=== PATIENT | male | born 1950 | race Caucasian/White ===

== ENCOUNTER 2017-03-05 11:14 | Observation (INO) | payer BC ==
[2017-03-05] MEDS ORDERED: NS 0.9% 1000 ML* 1,000 ML IV ONE (11:43)
--- NOTE | 2017-03-05 12:34 | RAD ---
Indication: Dizziness, syncope. CT of the brain was performed without IV contrast. Ventricular structures are midline. No midline shift is noted. The extra-axial spaces are unremarkable. There is no evidence of intra or hemorrhage. No other high or low density lesions are identified. Mastoid air cells and paranasal sinuses are otherwise unremarkable. IMPRESSION: No intracranial mass or hemorrhage is noted.
[2017-03-05 12:39] LABS: Hematocrit 44 % (42-52); Hemoglobin 14.7 g/dl (14.0-18.0); Mean Corpuscular HGB Conc 33 g/dl (31-36); Mean Corpuscular Hemoglobin 29 pg (27-31); Mean Corpuscular Volume 87 fL (80-94); Mean Platelet Volume 9 um3 (7.4-10.4); Red Blood Count 5.13 10^6/ul (4.0-5.4); Red Cell Distribution Width 14 % (10.5-15); White Blood Count 10.1 10^3/ul (3.5-10.8)
[2017-03-05 12:41] LABS: Urine Bilirubin Negative (Negative); Urine Glucose Negative (Negative); Urine Nitrite Negative (Negative)
[2017-03-05 12:53] LABS: Albumin 4.6 g/dL (3.2-5.2); Calcium 9.5 mg/dL (8.6-10.3); EGFR African American 96.7 (>60); EGFR Non-African American 75.2 (>60); Globulin 2.8 g/dL (2-4); Potassium 3.8 mmol/L (3.5-5.0); Total Bilirubin 0.6 mg/dL (0.2-1.0); Total Protein 7.4 g/dL (6.4-8.9)
[2017-03-05 13:03] LABS: TSH (Thyroid Stimulating Horm) 3.39 mcIU/mL (0.34-5.60)
[2017-03-05] MEDS ORDERED: Clopidogrel TAB* 300 MG PO ONE (13:12)
[2017-03-05] MEDS ORDERED: Iohexol 350* (CONTRAST) 500 ML MDV IV ONE (13:22)
[2017-03-05] MEDS ORDERED: Ondansetron INJ* 2 MG/ML VIAL IV PRN (13:30)
[2017-03-05] MEDS ORDERED: Acetaminophen TAB* 325 MG PO PRN (13:30)
--- NOTE | 2017-03-05 14:05 | RAD ---
HISTORY: Vertigo COMPARISONS: None TECHNIQUE: Multiple contiguous axial CT scans were obtained of the head and neck After the administration of nonionic intravenous contrast timed to the systemic arterial phase of contrast enhancement. Coronal and sagittal multiplanar reformations are submitted for review. Multiple 3-D maximum intensity projection reconstructions are also submitted for review. FINDINGS: CTA NECK: AORTIC ARCH: The aortic arch is not completely visualized within the [id number] the current examination. There is no proximal stenosis of the cephalic great vessels. RIGHT VERTEBRAL ARTERY: The right vertebral artery terminus in the right posterior inferior cerebellar artery LEFT VERTEBRAL ARTERY: The left vertebral artery is patent along its course, without stenosis. DOMINANCE: The left vertebral artery is dominant. RIGHT COMMON CAROTID ARTERY: The right common carotid artery is patent. The right carotid bifurcation occurs at C3-C4 RIGHT INTERNAL CAROTID ARTERY: There is no right internal carotid artery stenosis by NASCET criteria. RIGHT EXTERNAL CAROTID ARTERY: The right external carotid artery is unremarkable. LEFT COMMON CAROTID ARTERY: The left common carotid artery is patent. The left carotid bifurcation occurs at C3-C4 LEFT INTERNAL CAROTID ARTERY: There is no left internal carotid artery stenosis by NASCET criteria. LEFT EXTERNAL CAROTID ARTERY: The left external carotid artery is unremarkable. VENOUS CIRCULATION: The venous system is unremarkable. SALIVARY GLANDS: The parotid glands, submandibular glands, sublingual glands are normal. NASAL CAVITY/NASOPHARYNX: The nasal cavity and nasopharynx are normal. ORAL CAVITY/OROPHARYNX: The oral cavity is obscured by streak artifact from dental amalgam. The visualized oral cavity and oropharynx are unremarkable. LARYNGEAL APPARATUS/HYPOPHARYNX: The laryngeal apparatus and hypopharynx are normal. UPPER AIRWAY/UPPER ESOPHAGUS: The visualized upper airway and esophagus are normal. LUNG APICES: The lung apices are clear. THYROID GLAND: The thyroid gland is heterogeneous LYMPH NODES: There is no lymphadenopathy by size criteria. 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 Mild degenerative changes are noted CTA HEAD: INTRACRANIAL CIRCULATION: As noted above, the right vertebral artery terminates in the right posterior inferior cerebellar artery. There is a origin of the right posterior cerebral artery. The left posterior containing artery is dominant over the P1 segment of the left posterior cerebral artery. The basilar artery is diminutive which likely reflects an anatomic variant considering the majority of the posterior spinal artery flow appears to come from the anterior circulation. The anterior connecting artery complex is clear. There is no aneurysm, vascular malformation, occlusion, or focal stenosis of the visualized intracranial circulation VENOUS CIRCULATION: The venous system is unremarkable. PERFUSION: There is no obvious parenchymal perfusion deficit. HEMORRHAGE/INFARCT: There is no hemorrhage or acute infarct. MASSES/SHIFT: There is no mass or shift. EXTRA-AXIAL SPACES: There are no extra-axial fluid collections. SULCI AND VENTRICLES: The sulci and ventricles are normal in size and position for the patient's stated age. CEREBRUM: There are no focal parenchymal abnormalities. BRAINSTEM: There are no focal parenchymal abnormalities. CEREBELLUM: There are no focal parenchymal abnormalities. PARANASAL SINUSES: The paranasal sinuses are clear. ORBITS: The orbits are unremarkable. BONES AND SOFT TISSUE: No bone or soft tissue abnormalities are noted. OTHER: There is no abnormal enhancement. IMPRESSION: 1. NO INTERNAL CAROTID ARTERY STENOSIS BY NASCET CRITERIA. 2. NO ANEURYSM, VASCULAR MALFORMATION, OCCLUSION, OR STENOSIS OF THE VISUALIZED INTRACRANIAL CIRCULATION.. 3. HETEROGENEOUS THYROID. RECOMMEND CONSIDERATION OF CORRELATION WITH DEDICATED IMAGING OF THE THYROID IN THE NONACUTE SETTING. CPT II Codes: 3100F
--- NOTE | 2017-03-05 14:31 | CONS ---
CC: Dr. Aponte NEUROLOGY CONSULTATION: DATE OF CONSULTATION: 03/05/17 REFERRING PROVIDER: Dr. Love. LOCATION: He is in the emergency to be admitted. CHIEF COMPLAINT: Vertigo. HISTORY OF PRESENT ILLNESS: Zane Wise is a 66-year-old gentleman who was in his usual state of health today, just before midday seated at his desk when he suddenly experienced room spinning vertigo. It was pretty intense and after several minutes he got up and tried to go back to the bathroom to get some water to drink. He had to hold on to the emery. He made it back to his room and the vertigo gradually subsided over perhaps 5 minutes or perhaps a little bit longer. He felt pretty much back to normal within 10 minutes. There was no headache, neck pain, or change in hearing. There is no change in vision, double vision, and he was able to speak clearly according to his son and who were present in the emergency room today. There is no numbness of the face or limbs. There is no prior history of vertigo. He did not feel faint. He has a history of hearing loss dated to the years in the service from noise exposure. There is no history of head trauma. He was not bending over or moving when this vertigo started but rather he was just seated at his desk. He did have a coughing spell early this morning when he was in his car on the way to work but it did resolve and he was not coughing at the time of the onset of the spinning sensation. PAST MEDICAL HISTORY: Notable for coronary artery disease with stenting. He has a history of hypertension and dyslipidemia. MEDICATIONS AT HOME: 1. Aspirin 81 mg p.o. q.d. 2. Isradipine 5 mg p.o. q.d. 3. Crestor 20 mg p.o. q.d. 4. Vitamin B12 at 1000 mcg p.o. q.d. ALLERGIES: He is said to be allergic to AMLODIPINE and METOPROLOL, as well as RAMIPRIL and IRBESARTAN. FAMILY HISTORY: Noncontributory. 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 He smokes an occasional cigar but not cigarettes. He drinks alcohol infrequently. REVIEW OF SYSTEMS: Negative for head trauma, faints, chest pain, shortness of breath, change in weight, recent fevers, ear pain or recent hearing loss. No history of seizures. No recent change in medications. No recent upper respiratory infections, sore throat, or other signs or symptoms of infectious illness. PHYSICAL EXAMINATION: He is well-nourished and well-hydrated. Temperature 99.4 temporally, blood pressure 147/97 last measured, it is 130/86 on the monitor, heart rate is in the 70s and regular, respirations 15 and oxygen saturation is 97% on room air. Lungs are clear. Heart is in a regular rate and rhythm without murmurs. Carotid pulses are present. There are no anterior or posterior cervical bruits. Oral mucosa is moist and atraumatic. Neurologic: Pupils react equally from 3.5 to 2 mm. Funduscopic exam is normal bilaterally. Eye movements are full with some nystagmus in the left gaze only. Visual flores are full to confrontation. Head thrust test produces a corrective saccade in both right and left maneuvers. Facial musculature is intact and symmetric. Facial sensation to pin and light touch is symmetric. Palate and tongue appear normal, tongue protrudes in the midline and palate rises symmetrically. There is no dysarthria. He is hard of hearing. He has bilateral hearing aids; tympanic membranes are clear bilaterally when they are taken out for examination, however. Neck strength is normal. Motor exam reveals normal muscle tone, bulk, and strength proximally and distally in upper and lower extremities. Sensory exam in intact to vibration, light touch, and pin discrimination in all four extremities. There is no rest, suspension, or action tremor. Rcxtnj-[id number] maneuver and wbhf-[id number]-qrog maneuvers are normal bilaterally. Reflexes are diffusely hypoactive, trace at the ankles. Plantar responses are flexor bilaterally. Gait is stable and independent. Romberg's sign is absent. Tandem gait is intact. He is alert and oriented and a good detailed historian. Memory is intact and language is fluent. He is oriented to person, place and time. He has good attention, concentration, adequate fund of knowledge. DIAGNOSTIC STUDIES/LAB DATA: Laboratories are largely pending. He does have a normal CBC back. Chemistries are still pending however. CT scan of the brain is reviewed and interpreted as normal. I reviewed the images and I agree. A CT angiogram of the neck and brain has been ordered and is still pending. IMPRESSION: Monosymptomatic episode of vertigo. He does have a positive head thrust test but it is bilateral and nonlocalizing. Given his age and vascular risk factors and the duration of the vertigo, I recommend that he be admitted for transient ischemic attack workup. A CT angiogram of the neck and brain has been ordered and is still pending. If he has high-grade posterior circulation lesion, I may discuss this case with this stroke service at the [facility]. Otherwise, I think he should be admitted to telemetry and have a transthoracic echocardiogram and an MRI of the brain in addition to the above studies. Recommend loading him to Plavix 300 mg and discussed with that the patient. I told him the main risk is bleeding but in the short-term it is pretty safe treatment. I will check a fasting lipid profile in the morning. Currently, his blood pressure is adequate and I would not recommend any adjustments to his antihypertensive regimen. Further recommendations depend upon his hospital course and the results of his studies. [id number]/[facility] #: [id number] CHILO
--- NOTE | 2017-03-05 14:39 | RAD ---
HISTORY: Dizziness COMPARISONS: March 15, 2004 TECHNIQUE: The following sequences were obtained of the head: Sagittal T1-weighted images, axial T2-weighted images, axial FLAIR images, axial susceptibility weighted images, axial T1-weighted images. Additionally, axial diffusion-weighted images were obtained with calculated apparent diffusion coefficients. FINDINGS: HEMORRHAGE/INFARCT: There is no hemorrhage or acute infarct. MASSES/SHIFT: There is no mass or shift. EXTRA-AXIAL SPACES/MENINGES: There are no extra-axial fluid collections. SULCI AND VENTRICLES: There is a focus of high T1 signal in the third ventricle at the level of the foramen of [place], measuring approximately 0.3 cm in size.. When compared to the CT examination, there is a small focus of fat attenuation that can be identified in retrospect. 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 This is stable. This is considered incidental. CEREBRUM: There are no focal parenchymal abnormalities. BRAINSTEM: There are no focal parenchymal abnormalities. CEREBELLUM: There are no focal parenchymal abnormalities. The cerebellar tonsils are normal in size and position. SELLA: The sella is normal. PINEAL: The pineal region is clear. CP ANGLE/TEMPORAL BONES: The labyrinthine structures are grossly normal. VESSELS: Normal flow-voids are noted within the visualized vertebral vasculature. DIFFUSION ABNORMALITIES: There are no diffusion abnormalities. PARANASAL SINUSES/MASTOIDS: The paranasal sinuses are clear. ORBITS: The orbits are unremarkable. BONES AND SOFT TISSUE: No bone or soft tissue abnormalities are noted. OTHER: None IMPRESSION: UNREMARKABLE MRI OF THE BRAIN. THERE IS NO RESTRICTED DIFFUSION TO SUGGEST ACUTE INFARCT
--- NOTE | 2017-03-05 14:39 | HP ---
HISTORY AND PHYSICAL:* ADDENDUM: Zane Wise is a 66-year-old male with history of hypertension and hyperlipidemia, who presented complaining of sudden onset of dizziness. It lasted just minutes and resolved by the time he presented to the emergency department. The patient was seen by Neurology it sales consultant who recommended overnight observation. For further details of the patient's presentation and plan, please see history and physical dictated by Cristi Thomas on 03/05/17, with which I agree. [id number]/[facility] #: [id number] MTDHamida
--- NOTE | 2017-03-05 15:36 | ED ---
Cele Saravia Erika, scribed for Parmjit Love MD on 03/05/17 at 1328 . Dizziness - HPI Summary HPI Summary: Patient is a 66-year-old male presenting to the ED with a CC of dizziness. Patient reports that at around 10:45 today, he was sitting at his desk at work, when he started to feel as if the room was moving. He got up and walked over to a couch in the other room, and had significantly difficulty walking due to the symptoms. However, symptoms did not worsen with the ambulation. Patient denies blurred vision, impaired speech, and nausea. Symptoms lasted about 10 minutes, and then improved somewhat. He presents to the ED still feeling like the room is moving a bit, but improved from earlier. He still denies other symptoms, and states that symptoms were not aggravated by lying down on the gurney or walking in from the parking lot. - History Of Current Complaint Chief Complaint: EDDizziness Stated Complaint: DIZZY Time Seen by Provider: 03/05/17 11:29 Hx Obtained From: Patient Onset/Duration: Still Present - Mostly resolved, but somewhat still present Timing: Constant Severity Initially: Moderate Severity Currently: Mild Character: Room Spinning Aggravating Factor(s): Nothing Alleviating Factor(s): Nothing Associated Signs And Symptoms: Positive: Unsteady Gait. Negative: Nausea, Visual Changes - Allergies/Home Medications Allergies/Adverse Reactions: Allergies Allergy/AdvReac Type Severity Reaction Status Date / Time Amlodipine [From Norvasc] Allergy Unknown Verified 12/22/14 15:50 Reaction Details Irbesartan [From Avapro] Allergy Unknown Verified 12/22/14 15:50 Reaction Details Metoprolol [From Toprol XL] Allergy Unknown Verified 12/22/14 15:50 Reaction Details Ramipril [From Altace] Allergy Unknown Verified 12/22/14 15:50 Reaction Details Home Medications: Home Medications Aspirin Low Dose CHEW TAB* [Aspirin Low Dose TAB*] 81 mg PO DAILY 03/05/17 [ History Confirmed 03/05/17] Cyanocobalamin TAB* [Vitamin B12 TAB*] 1,000 mcg PO DAILY 03/05/17 [History Confirmed 03/05/17] Isradipine 5 mg PO DAILY 03/05/17 [History Confirmed 03/05/17] Rosuvastatin (NF) [Crestor (NF)] 20 mg PO QPM 03/05/17 [History Confirmed ] PMH/Surg Hx/FS Hx/Imm Hx Endocrine/Hematology History: Denies: Hx Diabetes Cardiovascular History: Reports: Hx Hypertension - Surgical History Surgery Procedure, Year, and Place: cardiac stents Infectious Disease History: Yes Infectious Disease History: Denies: Traveled Outside the [place] in Last 30 Days - Family History Known Family History: Positive: Cardiac Disease - Social History Occupation: Employed Full-time Alcohol Use: Occasionally Substance Use Type: Reports: None Hx Tobacco Use: Yes Smoking Status (MU): Current Some Day Smoker Review of Systems Negative: Blurred Vision Negative: Nausea Neurological: Other - dizziness with unsteady gait Negative: Slurred Speech All Other Systems Reviewed And Are Negative: Yes Physical Exam Triage Information Reviewed: Yes Vital Signs On Initial Exam: Initial Vitals Temp Pulse Resp BP Pulse Ox 98.1 F 84 18 149/98 99 03/05/17 11:17 03/05/17 11:17 03/05/17 11:17 03/05/17 11:17 03/05/17 11:17 Vital Signs Reviewed: Yes Appearance: Positive: Well-Appearing, No Pain Distress Skin: Positive: Warm, Skin Color Reflects Adequate Perfusion, Dry Head/Face: Positive: Normal Head/Face Inspection Eyes: Positive: Other: - Mild horizontal nystagmus that fatigues to the right ENT: Positive: Normal ENT inspection Neck: Positive: Supple, Nontender Respiratory/Lung Sounds: Positive: Clear to Auscultation, Breath Sounds Present Cardiovascular: Positive: RRR Abdomen Description: Positive: Nontender, Soft Bowel Sounds: Positive: Present Musculoskeletal: Positive: Normal Neurological: Positive: Sensory/Motor Intact, Alert, Oriented to Person Place, Time, CN Intact II-III, Other - Mild horizontal nystagmus that fatigues to the right Psychiatric: Positive: Affect/Mood Appropriate - Gurwinder Coma Scale Coma Scale Total: 15 Diagnostics - Vital Signs Vital Signs Temp Pulse Resp BP Pulse Ox 03/05/17 11:54 99.4 F 76 15 147/97 97 03/05/17 11:17 98.1 F 84 18 149/98 99 - Laboratory Lab Results: Lab Results 03/05/17 03/05/17 03/05/17 Range/Units 12:05 12:05 12:05 WBC 10.1 (3.5-10.8) 10^3/ul RBC 5.13 (4.0-5.4) 10^6/ul Hgb 14.7 (14.0-18.0) g/dl Hct 44 (42-52) % MCV 87 (80-94) fL MCH 29 (27-31) pg MCHC 33 (31-36) g/dl RDW 14 (10.5-15) % Plt Count 262 (150-450) 10^3/ul MPV 9 (7.4-10.4) um3 Neut % (Auto) 76.7 (38-83) % Lymph % (Auto) 13.3 L (25-47) % Stokes % (Auto) 7.5 (1-9) % Eos % (Auto) 1.7 (0-6) % Baso % (Auto) 0.8 (0-2) % Absolute Neuts (auto) 7.8 H (1.5-7.7) 10^3/ul Absolute Lymphs (auto) 1.3 (1.0-4.8) 10^3/ul Absolute Monos (auto) 0.8 (0-0.8) 10^3/ul Absolute Eos (auto) 0.2 (0-0.6) 10^3/ul Absolute Basos (auto) 0.1 (0-0.2) 10^3/ul Absolute Nucleated RBC 0.01 10^3/ul Nucleated RBC % 0.1 INR (Anticoag Therapy) 0.89 (0.89-1.11) Sodium 135 (133-145) mmol/L Potassium 3.8 (3.5-5.0) mmol/L Chloride 99 L (101-111) mmol/L Carbon Dioxide 30 (22-32) mmol/L Anion Gap 6 (2-11) mmol/L BUN 19 (6-24) mg/dL Creatinine 1.00 (0.67-1.17) mg/dL Est GFR ( Amer) 96.7 (>60) Est GFR (Non-Af Amer) 75.2 (>60) BUN/Creatinine Ratio 19.0 (8-20) Glucose 100 (70-100) mg/dL Lactic Acid (0.5-2.0) mmol/L Calcium 9.5 (8.6-10.3) mg/dL Total Bilirubin 0.60 (0.2-1.0) mg/dL AST 25 (13-39) U/L ALT 27 (7-52) U/L Alkaline Phosphatase 61 (34-104) U/L Troponin I 0.00 (<0.04) ng/mL Total Protein 7.4 (6.4-8.9) g/dL Albumin 4.6 (3.2-5.2) g/dL Globulin 2.8 (2-4) g/dL Albumin/Globulin Ratio 1.6 (1-3) TSH 3.39 (0.34-5.60) mcIU/mL Urine Color Urine Appearance Urine pH (5-9) Ur Specific Henri[place] (1.010-1.030) Urine Protein (Negative) Urine Ketones (Negative) Urine Blood (Negative) Urine Nitrate (Negative) Urine Bilirubin (Negative) Urine Urobilinogen (Negative) Ur Leukocyte Esterase (Negative) Urine Glucose (Negative) 03/05/17 03/05/17 Range/Units 12:05 12:15 WBC (3.5-10.8) 10^3/ul RBC (4.0-5.4) 10^6/ul Hgb (14.0-18.0) g/dl Hct (42-52) % MCV (80-94) fL MCH (27-31) pg MCHC (31-36) g/dl RDW (10.5-15) % Plt Count (150-450) 10^3/ul MPV (7.4-10.4) um3 Neut % (Auto) (38-83) % Lymph % (Auto) (25-47) % Stokes % (Auto) (1-9) % Eos % (Auto) (0-6) % Baso % (Auto) (0-2) % Absolute Neuts (auto) (1.5-7.7) 10^3/ul Absolute Lymphs (auto) (1.0-4.8) 10^3/ul Absolute Monos (auto) (0-0.8) 10^3/ul Absolute Eos (auto) (0-0.6) 10^3/ul Absolute Basos (auto) (0-0.2) 10^3/ul Absolute Nucleated RBC 10^3/ul Nucleated RBC % INR (Anticoag Therapy) (0.89-1.11) Sodium (133-145) mmol/L Potassium (3.5-5.0) mmol/L Chloride (101-111) mmol/L Carbon Dioxide (22-32) mmol/L Anion Gap (2-11) mmol/L BUN (6-24) mg/dL Creatinine (0.67-1.17) mg/dL Est GFR ( Amer) (>60) Est GFR (Non-Af Amer) (>60) BUN/Creatinine Ratio (8-20) Glucose (70-100) mg/dL Lactic Acid 1.0 (0.5-2.0) mmol/L Calcium (8.6-10.3) mg/dL Total Bilirubin (0.2-1.0) mg/dL AST (13-39) U/L ALT (7-52) U/L Alkaline Phosphatase (34-104) U/L Troponin I (<0.04) ng/mL Total Protein (6.4-8.9) g/dL Albumin (3.2-5.2) g/dL Globulin (2-4) g/dL Albumin/Globulin Ratio (1-3) TSH (0.34-5.60) mcIU/mL Urine Color Yellow Urine Appearance Clear Urine pH 7.0 (5-9) Ur Specific [place] 1.006 L (1.010-1.030) Urine Protein Negative (Negative) Urine Ketones Negative (Negative) Urine Blood Negative (Negative) Urine Nitrate Negative (Negative) Urine Bilirubin Negative (Negative) Urine Urobilinogen Negative (Negative) Ur Leukocyte Esterase Negative (Negative) Urine Glucose Negative (Negative) Result Diagrams: 03/05/17 12:05 03/05/17 12:05 Lab Statement: Any lab studies that have been ordered have been reviewed, and results considered in the medical decision making process. - CT CT Brain CT Interpretation Completed By: Radiologist - IMPRESSION: No intracranial mass or hemorrhage is noted. Head/Neck CTA CT Interpretation Completed By: Radiologist - IMPRESSION: 1. NO INTERNAL CAROTID ARTERY STENOSIS BY NASCET CRITERIA. 2. NO ANEURYSM, VASCULAR MALFORMATION, OCCLUSION, OR STENOSIS OF THE VISUALIZED INTRACRANIAL CIRCULATION.. 3. HETEROGENEOUS THYROID. RECOMMEND CONSIDERATION OF CORRELATION WITH DEDICATED IMAGING OF THE THYROID IN THE NONACUTE SETTING. - EKG 13:09 Cardiac Rate: NL - at 74 bpm EKG Rhythm: Sinus Rhythm Dizzy Course/Dx - Course Course Of Treatment: Mr. Wise's exam was unremarkable and Dr. Herring was consulted as I can't tell whether this is peripheral or central and he has risk factors. - Diagnoses Provider Diagnoses: DIZZINESS, TIA (transient ischemic attack) - Provider Notifications Discussed Care Of Patient with: Dr. Herring (neurology) at 11:55 - recommends ordering CTA head. Will come see patient. Dr. Herring at 13:00 - Saw patient and recommends admission for possible TIA. Dr. Kaplan (hospitalist) at 13:03 - agrees to admit. Discharge - Discharge Plan Condition: Stable Disposition: ADMITTED TO [facility] documentation as recorded by the Cele moreno Erika accurately reflects the service I personally performed and the decisions made by me, Parmjit Love MD.
--- NOTE | 2017-03-05 16:27 | HP ---
ATTENDING PHYSICIAN ADDENDUM NOW INCLUDED ON THIS REPORT HISTORY AND PHYSICAL: DATE OF ADMISSION: 03/05/17 PRIMARY CARE PHYSICIAN: Dr. Monaco ATTENDING PHYSICIAN WHILE IN THE HOSPITAL: Kathy Kaplan MD* (report dictated by Sumanth Thomas NP). CHIEF COMPLAINT: Dizziness. HISTORY OF PRESENT ILLNESS: Mr. Wise is a 66-year-old male patient with history of hypertension, hyperlipidemia, and CAD. He does also admit to having vertigo about 10 years ago. He comes into the ER today, he was at work and he was sitting at the counter, he started becoming dizzy and thought the room was spinning. He had no other associated symptoms of nausea or vomiting. He got up to go into the back room, he started feeling again when he was walking, feeling dizzy, feeling like he was going to fall. He had to use the side of the building to help him stabilize himself to get to the back room. He sat down and the dizziness was not getting any better. His son was concerned and they brought him into the hospital to be evaluated. He was evaluated by Dr. Herring. There was concern that this may be a possible TIA. We were asked to evaluate for admission. He does state that this morning he had an episode around 8:30 of coughing while getting into his son's truck. He thought maybe he was coming down with a cold, but he has not had any symptoms of sore throat, runny nose. He had not been coughing prior until today. He denies having any chest pain or shortness of breath. No fevers and no change in medications. Because of the dizziness and the fact that the room was spinning and the fact that it lasted for approximately 5 minutes, again we were asked to evaluate for admission for vertigo versus TIA workup. PAST MEDICAL HISTORY: Significant for: 1. Hypertension. 2. Hyperlipidemia. 3. CAD. 4. Vertigo. PAST SURGICAL HISTORY: 1. He has had a history of cardiac cath. 2. Hernia repair. ALLERGIES TO MEDICATIONS: Includes NORVASC, AVAPRO, LOPRESSOR, RAMIPRIL. HOME MEDICATIONS: According to the list that we were able to obtain include: 1. Crestor 20 mg p.o. daily. 2. Isradipine 5 mg p.o. daily. 3. B12 1000 mcg p.o. daily. 4. Cinnamon 1000 mg p.o. daily. 5. Aspirin 81 mg daily. FAMILY HISTORY: Mother's history reviewed and noncontributory. Father did have history of diabetes. SOCIAL HISTORY: He occasionally smokes a cigar. He occasionally drinks alcohol. He is , with children. Surrogate decision maker is his , Ruthie. REVIEW OF SYSTEMS: There is no documented fever. Denied having any significant weight change. There was no double vision. There was no ear discharge. Denies having any rhinorrhea. There was no sore throat, no thyroid enlargement. Denied having any chest pain. There was no orthopnea, no nocturnal dyspnea. There was no abdominal pain. No nausea, no vomiting, no dysuria, no frequency, no seizure, no loss of consciousness, no pruritus and no skin ulcerations. Review of 14 systems completed, all others negative. PHYSICAL EXAMINATION GENERAL: At this time, Mr. Wise is a 66-year-old male patient, appears to be well nourished, well developed, he is sitting in the ER stretcher. He does not appear to be in any acute distress. VITAL SIGNS: Blood pressure 147/97, pulse 76, respirations 15, O2 sat 97%, temperature 99.4. HEENT: Head is atraumatic and normocephalic. Eyes: EOMs are intact. Sclerae were anicteric, not pale. Throat: Oral mucosa appears to be moist. No oropharyngeal erythema. NECK: Supple. LUNGS: Clear to auscultation bilaterally. No wheezes or rhonchi. HEART: Sounds S1 and S2, regular rate and rhythm. No murmurs, rubs, or gallops. ABDOMEN: Soft, it was flat, nontender. Bowel sounds present. EXTREMITIES: Pulses were 2+ throughout. He is able to move all 4 extremities with 5/5 strength. NEUROLOGIC: He is awake, he is alert, he is oriented x3. His tongue is midline. His belt cutter are equal. [id number] intact bilaterally and heel-to- pinon intact bilaterally. Cranial nerves II through XII are intact. No gross focal deficits. SKIN: Intact. DIAGNOSTIC STUDIES/LAB DATA: Labs today reveal WBC 10.1, RBC of 5.13, hemoglobin 14.7, hematocrit 44, and platelet count of 252. INR 0.89. Sodium 135, potassium 3.8, chloride 99, bicarbonate 30, BUN 19, creatinine of 1, glucose 100, lactic 1.0, calcium 1.5, total bili 0.6, AST 25, ALT 27, alk phos 51, troponin 0. TSH of 3.39. Urine was obtained and was negative. He had a brain CT obtained today, which revealed no intracranial mass or hemorrhages noted. He had an EKG, which showed normal sinus rhythm, rate of 74. No ST elevations or T-wave inversions were noted. Old medical records were reviewed. ASSESSMENT/PLAN: Mr. Wise is a 66-year-old male patient coming into the ER today with complaint of dizziness. On evaluation here in the ED, there was concern for possible transient ischemic attack versus vertigo. We were asked to evaluate for admission. He will be admitted under observation status for: 1. Transient ischemic attack versus vertigo. At this point, Dr. Herring did evaluate the patient today and because of the duration and sudden onset, it was felt that he would warrant a transient ischemic attack workup, so at this point , he will be loaded with Plavix. We will put him on Plavix and aspirin in the morning. He is on statin therapy. We will go ahead and continue with CT of the head and neck, MRI of the brain, and echo with bubble study. We will place the patient on telemetry with neuro checks. We will continue to follow. We may need to consider adding p.r.n. meclizine if symptoms do not improve, but his symptoms are gone now, so we will await workup for further course of action and Dr. Herring to follow. 2. Hypertension. In the setting that there may be concern for transient ischemic attack, I am going to hold his blood pressure meds. We will allow for permissive hypertension. 3. Hyperlipidemia. Keep him on statin therapy. Check lipids in the morning. 4. Coronary artery disease. He is on an aspirin and statin, continue. 5. History of vertigo. At this point, we will continue to monitor. May be considering p.r.n. meclizine depending on workup. 6. DVT prophylaxis. He will be placed on heparin subcu. 7. Code status. He is full code. 8. Fluids, electrolytes, and nutrition. He can have a heart healthy diet. TIME SPENT: Time spent on the admission was 60 minutes, greater than half the time spent [id number] with the patient obtaining my history of physical, the other half time was spent going over the plan of care with the patient and implementing plan of care. I did discuss the plan of care with my attending, Dr. Kaplan; she is in agreement. SUMANTH THOMAS NP ADDENDUM: Zane Wise is a 66-year-old male with history of hypertension and hyperlipidemia, who presented complaining of sudden onset of dizziness. It lasted just minutes and resolved by the time he presented to the emergency department. The patient was seen by Neurology center lead consultant who recommended overnight observation. For further details of the patient's presentation and plan, please see history and physical dictated by Cristi Thomas on 03/05/17, with which I agree. KATHY KAPLAN MD CC: Dr. Monaco* [id number]/[facility] #: [id number] #: [id number] MTDHamida
[2017-03-05] MEDS: Heparin VIAL(*) 5000 UNITS/ML VIAL (FIVE THOUSAND) SUBCUT SCH ×2 (16:53→20:37)
[2017-03-05] MEDS ORDERED: Atorvastatin* 40 MG TAB PO SCH (18:00)
[2017-03-06 05:02] LABS: Hematocrit 43 % (42-52); Hemoglobin 14.1 g/dl (14.0-18.0); Mean Corpuscular HGB Conc 33 g/dl (31-36); Mean Corpuscular Hemoglobin 29 pg (27-31); Mean Corpuscular Volume 87 fL (80-94); Mean Platelet Volume 9 um3 (7.4-10.4); Red Blood Count 4.88 10^6/ul (4.0-5.4); Red Cell Distribution Width 15 % (10.5-15); White Blood Count 6.5 10^3/ul (3.5-10.8)
[2017-03-06] MEDS: Heparin VIAL(*) 5000 UNITS/ML VIAL (FIVE THOUSAND) SUBCUT SCH (05:17)
[2017-03-06 05:19] LABS: BUN/Creatinine Ratio 15.8 (8-20); Calcium 8.8 mg/dL (8.6-10.3); EGFR African American 95.6 (>60); EGFR Non-African American 74.4 (>60); HDL Cholesterol 38.3 mg/dL; Potassium 3.8 mmol/L (3.5-5.0)
[2017-03-06] MEDS ORDERED: Aspirin Low Dose CHEW TAB* 81 MG PO SCH (09:00)
[2017-03-06] MEDS ORDERED: Clopidogrel TAB* 75 MG PO SCH (09:00)
--- NOTE | 2017-03-06 09:11 | ECHO ---
Patient: RENEE VALENTINE [facility] Rec#: [id number] : 1950 Date: 03/06/2017 Age: 66y Height: 175.26 cm / 69.0 in Weight: 81.19 kg / 178.9 lbs Sex: M BSA: 1.97 Room#: 433 Admit Date#: 03/05/2017 Type: Inpatient Referring: Emilio Herring MD Reading: Daniel Aponte MD Philanthropy Officer: Rosamaria Lagunas KVNG CC: Vinod Monaco MD Transthoracic Echocardiogram Indication: TIA BP: 125/75 HR: 67 Rhythm: NSR Findings History: HTN,CAD,s/p PCIx2 in 2002. Technical Comments: The study quality is good. Completed at 0820. Left Ventricle: The left ventricular chamber size is normal. Mild concentric left ventricular hypertrophy is observed. Global left ventricular wall motion and contractility are within normal limits. There is normal left ventricular systolic function. The estimated ejection fraction is 55-60%. Abnormal left ventricular diastolic function is observed. Left Atrium: The left atrial chamber size is normal. Right Ventricle: The right ventricular cavity size is normal. The right ventricular global systolic function is normal. Right Atrium: The right atrial cavity size is normal. Aortic Valve: The aortic valve is trileaflet. There is no evidence of aortic regurgitation. There is no evidence of aortic stenosis. Mitral Valve: The mitral valve leaflets are mildly thickened. There is a trace of mitral regurgitation. There is no evidence of mitral stenosis. Tricuspid Valve: The tricuspid valve leaflets are normal. There is trace tricuspid regurgitation. Unable to estimate the right ventricular systolic pressure. Pulmonic Valve: The pulmonic valve appears normal. There is mild pulmonic regurgitation. There is no pulmonic stenosis. Pericardium: A pericardial fat pad is visualized. Aorta: There is no dilatation of the ascending aorta. There is no dilatation of the aortic arch. There is no dilation of the aortic root. Pulmonary Artery: The main pulmonary artery appears normal. Venous: The inferior vena cava appears normal in size. There is a greater than 50% respiratory change in the inferior vena cava dimension. Conclusions Mild concentric left ventricular hypertrophy is observed. The estimated ejection fraction is 55-60%. Abnormal left ventricular diastolic function is observed. Minor valvular regurgitation: MR, TR, PI. Similar to 6.2015 except for LVH and diastolic dysfunction. Measurements Name Value Normal Range RVIDd (AP) 2D 2.5 cm (0.9 - 2.6) RVDdMajor (2D) 3.5 cm (2.2 - 4.4) RAd ISD 4CH 4.9 cm (3.4 - 4.9) RA (A4C)W 2.6 cm (2.9 - 4.6) IVSd (2D) 1.3 cm (0.6 - 1) LVPWd (2D) 1.3 cm (0.6 - 1) LVIDd (2D) 3.7 cm (3.6 - 5.4) LVIDs (2D) 2.6 cm - LV FS (2D) 29 % (25 - 45) Aortic Annulus 1.9 cm (1.4 - 2.6) Ao root diameter (2D) 3.4 cm (2.1 - 3.5) Ascending Ao 3.4 cm (2.1 - 3.4) Aortic arch 2.2 cm (1.8 - 3.4) Descending Ao 0.5 cm - LA dimension (AP) 2D 3.6 cm (2.3 - 3.8) LAd ISD 4CH 5.1 cm (2.9 - 5.3) LA ISD 4CH W 3.8 cm (2.5 - 4.5) Name Value Normal Range LA ESV SP 4CH (A/L) 50 ml - LA ESV SP 2CH (A/L) 55 ml - LA ESV BP (A/L) 53 ml - LA ESV BP (A/L) index 26.95 ml/m2 - LA ESV SP 4CH (MOD) 48 ml - LA ESV SP 2CH (MOD) 53 ml - Name Value Normal Range MV E-wave Vmax 0.6 m/sec - MV deceleration time 178 msec - MV A-wave Vmax 0.7 m/sec - MV E:A ratio 0.86 ratio - LV septal e' Vmax 0.04 m/sec - LV lateral e' Vmax 0.08 m/sec - LV E:e' septal ratio 15 ratio - LV E:e' lateral ratio 7.5 ratio - Name Value Normal Range AV Vmax 1.2 m/sec - AV VTI 27.9 cm - AV peak gradient 6.02 mmHg - AV mean gradient 3.02 mmHg - LVOT Vmax 1 m/sec - LVOT VTI 21.3 cm - LVOT peak gradient 4.22 mmHg - LVOT mean gradient 1.89 mmHg - Name Value Normal Range IVC diameter 1.6 cm - Name Value Normal Range PV Vmax 0.6 m/sec - PV peak gradient 1.44 mmHg -
--- NOTE | 2017-03-06 10:27 | CONS ---
CC: Dr. Aponte NEUROLOGY CONSULTATION FOLLOWUP: DATE OF FOLLOWUP: 03/06/17 - Inpatient, Room 433. HOSPITALIST: Dr. Wiley. PRIMARY CARE PHYSICIAN: Dr. Monaco. CHIEF COMPLAINT: Vertigo. INTERVAL HISTORY: Since yesterday, Zane has not had any further episodes of vertigo. He had the o ne 5- or 10-minute episode and that was it. He has no new symptoms to report. No headaches or visu al changes, and generally he feels well. He has been steady on his feet. He has been eating without nausea or difficulty swallowing. PHYSICAL EXAMINATION: He remains afebrile. Blood pressure most recently 142/97, heart rate 60s, re spirations 20. Oxygen saturation is 97% on room air. Speech is clear without dysarthria. Eye move ments are full. DIAGNOSTIC STUDIES/LAB DATA: Laboratory data includes an MRI of the brain, which I reviewed the [facility] ges of, and which looks completely normal. CT angiogram of the brain and neck reveals a persistent circulation, but no atherosclerotic changes. Other laboratory data notable for a lipid profile - cholesterol 145, LDL 72. Hemoglobin A1c is borde rline at 6.2%. The rest of the chemistry profile is unremarkable. An echocardiogram was done [facility] today and the report is pending. IMPRESSION: Impression is that of a single episode of vertigo lasting 5-10 minutes. It was too wil ef for vestibular neuronitis and too long for paroxysmal positional vertigo. I think it best treate d as a TIA, although I don't have a good evidence that that, in fact, is what happened. I would rec ommend that, if his echocardiogram is normal, he be discharged on Plavix and aspirin dual-antiplatel et therapy for 90 days and then switched to Plavix monotherapy. His blood pressure should be monito red as an outpatient and he should remain on a statin as his lipid profile looks excellent. I will be happy to see him in my office in follow up in about a month. [id number]/[facility] #: [id number]
[2017-03-06 11:46] VITALS: BP 152/87
--- NOTE | 2017-03-06 12:01 | PN ---
Subjective Date of Service: 03/06/17 Interval History: Pt is feeling well this AM. No further symptoms of dizziness. No other symptoms of weakness. He feels ready to go home. Objective Active Medications: Acetaminophen (Tylenol Tab*) 650 mg PO Q4H PRN PRN Reason: FEVER/PAIN Aspirin (Aspirin Low Dose Tab*) 81 mg PO DAILY [facility] Last Admin: 03/06/17 08:46 Dose: 81 mg Atorvastatin Calcium (Lipitor*) 40 mg PO QPM [facility] Last Admin: 03/05/17 18:22 Dose: 40 mg Clopidogrel Bisulfate (Plavix Tab*) 75 mg PO DAILY [facility] Last Admin: 03/06/17 08:46 Dose: 75 mg Heparin Sodium (Porcine) (Heparin Vial(*)) 5,000 units SUBCUT Q8HR [facility] Last Admin: 03/06/17 05:17 Dose: 5,000 units Ondansetron HCl (Zofran Inj*) 4 mg IV Q6H PRN PRN Reason: NAUSEA Vital Signs 03/05/17 03/05/17 03/05/17 13:30 14:35 14:36 Temperature Pulse Rate 71 71 83 Respiratory Rate Blood Pressure 145/92 154/101 (mmHg) O2 Sat by Pulse 96 98 94 Oximetry 03/05/17 03/05/17 03/05/17 14:38 14:42 15:00 Temperature Pulse Rate 69 Respiratory Rate Blood Pressure 154/96 149/99 (mmHg) O2 Sat by Pulse 97 Oximetry 03/05/17 03/05/17 03/05/17 15:30 15:43 16:20 Temperature 97.8 F Pulse Rate 74 Respiratory 15 14 Rate Blood Pressure 145/93 150/97 (mmHg) O2 Sat by Pulse 99 Oximetry 03/05/17 03/05/17 03/05/17 16:30 19:39 23:18 Temperature 98.3 F 98.1 F Pulse Rate 72 68 Respiratory 16 16 20 Rate Blood Pressure 141/97 139/77 (mmHg) O2 Sat by Pulse 96 97 Oximetry 03/06/17 03/06/17 03/06/17 03:37 08:00 08:10 Temperature 98.3 F 97.6 F Pulse Rate 69 65 65 Respiratory 20 Rate Blood Pressure 125/75 142/97 142/97 (mmHg) O2 Sat by Pulse 98 99 99 Oximetry 03/06/17 11:37 Temperature 97.4 F Pulse Rate 70 Respiratory 20 Rate Blood Pressure 152/87 (mmHg) O2 Sat by Pulse 100 Oximetry Oxygen Devices in Use Now: None Appearance: Middle aged male sitting in a chair, NAD Eyes: No Scleral Icterus Ears/Nose/Mouth/Throat: Mucous Membranes Moist Skin: No Nodules or Sclerosis Neurological: Alert and Oriented x 3, NL Muscle Strength and Tone Result Diagrams: 03/06/17 04:15 03/06/17 04:15 Additional Lab and Data: Lab Results 03/05/17 03/05/17 03/05/17 Range/Units 12:05 12:05 12:05 WBC 10.1 (3.5-10.8) 10^3/ul RBC 5.13 (4.0-5.4) 10^6/ul Hgb 14.7 (14.0-18.0) g/dl Hct 44 (42-52) % MCV 87 (80-94) fL MCH 29 (27-31) pg MCHC 33 (31-36) g/dl RDW 14 (10.5-15) % Plt Count 262 (150-450) 10^3/ul MPV 9 (7.4-10.4) um3 Neut % (Auto) 76.7 (38-83) % Lymph % (Auto) 13.3 L (25-47) % [place] % (Auto) 7.5 (1-9) % Eos % (Auto) 1.7 (0-6) % Baso % (Auto) 0.8 (0-2) % Absolute Neuts (auto) 7.8 H (1.5-7.7) 10^3/ul Absolute Lymphs (auto) 1.3 (1.0-4.8) 10^3/ul Absolute Monos (auto) 0.8 (0-0.8) 10^3/ul Absolute Eos (auto) 0.2 (0-0.6) 10^3/ul Absolute Basos (auto) 0.1 (0-0.2) 10^3/ul Absolute Nucleated RBC 0.01 10^3/ul Nucleated RBC % 0.1 INR (Anticoag Therapy) 0.89 (0.89-1.11) Sodium 135 (133-145) mmol/L Potassium 3.8 (3.5-5.0) mmol/L Chloride 99 L (101-111) mmol/L Carbon Dioxide 30 (22-32) mmol/L Anion Gap 6 (2-11) mmol/L BUN 19 (6-24) mg/dL Creatinine 1.00 (0.67-1.17) mg/dL Est GFR ( Amer) 96.7 (>60) Est GFR (Non-Af Amer) 75.2 (>60) BUN/Creatinine Ratio 19.0 (8-20) Glucose 100 (70-100) mg/dL Lactic Acid (0.5-2.0) mmol/L Calcium 9.5 (8.6-10.3) mg/dL Total Bilirubin 0.60 (0.2-1.0) mg/dL AST 25 (13-39) U/L ALT 27 (7-52) U/L Alkaline Phosphatase 61 (34-104) U/L Troponin I 0.00 (<0.04) ng/mL Total Protein 7.4 (6.4-8.9) g/dL Albumin 4.6 (3.2-5.2) g/dL Globulin 2.8 (2-4) g/dL Albumin/Globulin Ratio 1.6 (1-3) TSH 3.39 (0.34-5.60) mcIU/mL Urine Color Urine Appearance Urine pH (5-9) Ur Specific [place] (1.010-1.030) Urine Protein (Negative) Urine Ketones (Negative) Urine Blood (Negative) Urine Nitrate (Negative) Urine Bilirubin (Negative) Urine Urobilinogen (Negative) Ur Leukocyte Esterase (Negative) Urine Glucose (Negative) 03/05/17 03/05/17 Range/Units 12:05 12:15 WBC (3.5-10.8) 10^3/ul RBC (4.0-5.4) 10^6/ul Hgb (14.0-18.0) g/dl Hct (42-52) % MCV (80-94) fL MCH (27-31) pg MCHC (31-36) g/dl RDW (10.5-15) % Plt Count (150-450) 10^3/ul MPV (7.4-10.4) um3 Neut % (Auto) (38-83) % Lymph % (Auto) (25-47) % [place] % (Auto) (1-9) % Eos % (Auto) (0-6) % Baso % (Auto) (0-2) % Absolute Neuts (auto) (1.5-7.7) 10^3/ul Absolute Lymphs (auto) (1.0-4.8) 10^3/ul Absolute Monos (auto) (0-0.8) 10^3/ul Absolute Eos (auto) (0-0.6) 10^3/ul Absolute Basos (auto) (0-0.2) 10^3/ul Absolute Nucleated RBC 10^3/ul Nucleated RBC % INR (Anticoag Therapy) (0.89-1.11) Sodium (133-145) mmol/L Potassium (3.5-5.0) mmol/L Chloride (101-111) mmol/L Carbon Dioxide (22-32) mmol/L Anion Gap (2-11) mmol/L BUN (6-24) mg/dL Creatinine (0.67-1.17) mg/dL Est GFR ( Amer) (>60) Est GFR (Non-Af Amer) (>60) BUN/Creatinine Ratio (8-20) Glucose (70-100) mg/dL Lactic Acid 1.0 (0.5-2.0) mmol/L Calcium (8.6-10.3) mg/dL Total Bilirubin (0.2-1.0) mg/dL AST (13-39) U/L ALT (7-52) U/L Alkaline Phosphatase (34-104) U/L Troponin I (<0.04) ng/mL Total Protein (6.4-8.9) g/dL Albumin (3.2-5.2) g/dL Globulin (2-4) g/dL Albumin/Globulin Ratio (1-3) TSH (0.34-5.60) mcIU/mL Urine Color Yellow Urine Appearance Clear Urine pH 7.0 (5-9) Ur Specific [place] 1.006 L (1.010-1.030) Urine Protein Negative (Negative) Urine Ketones Negative (Negative) Urine Blood Negative (Negative) Urine Nitrate Negative (Negative) Urine Bilirubin Negative (Negative) Urine Urobilinogen Negative (Negative) Ur Leukocyte Esterase Negative (Negative) Urine Glucose Negative (Negative) Assess/Plan/Problems-Billing Mr Wise is a 66 yo M who has a h/o HTN, HLD and CAD who presented to the ER with c/o dizziness and was admitted for evaluation of possible TIA. - Patient Problems (1) TIA (transient ischemic attack) Current Visit: Yes Status: Acute Comment: No further symptoms. MRI negative for CVA. CTA head/neck without any carotid stenosis or intracrainal findings. Echo was negative for embolic source. Will plan on treating the patient with ASA and plavix x90 days followed by plavix alone going forward. He has been instructed to return to the ER for any concerning findings. (2) HTN (hypertension) Current Visit: Yes Status: Acute Code(s): I10 - ESSENTIAL (PRIMARY) HYPERTENSION SNOMED Code(s): 88991081 Comment: BP is moderately elevated but will resume isradipine on discharge. (3) HLD (hyperlipidemia) Current Visit: Yes Status: Acute Code(s): E78.5 - HYPERLIPIDEMIA, UNSPECIFIED SNOMED Code(s): 58799277 Comment: Lipid profile is favorable. Continue crestor. (4) CAD (coronary artery disease) Current Visit: Yes Status: Acute Code(s): I25.10 - ATHSCL HEART DISEASE OF [place] CORONARY ARTERY W/O ANG PCTRS SNOMED Code(s): 92568825 Comment: No acute issues this hospitalization. Continue ASA, crestor. (5) DVT prophylaxis Current Visit: Yes Status: Acute Code(s): ONV1150 - SNOMED Code(s): 195596847 Comment: SQ heparin (6) Full code status Current Visit: Yes Status: Acute Code(s): Z78.9 - OTHER SPECIFIED HEALTH STATUS SNOMED Code(s): 155292654
--- NOTE | 2017-03-07 02:53 | DS ---
DISCHARGE SUMMARY: DATE OF ADMISSION: 03/05/17 DATE OF DISCHARGE: 03/06/17 PRIMARY CARE PROVIDER: Dr. Monaco. DRIVER STARTING GATE: Dr. Aponte. NEUROLOGIST: Dr. Herring. PRINCIPAL DIAGNOSIS: Possible transient ischemic attack. SECONDARY DIAGNOSES: 1. Hypertension. 2. Hyperlipidemia. 3. Coronary artery disease. DISCHARGE MEDICATIONS: 1. Vitamin B12 1000 mcg p.o. daily. 2. Cinnamon 1000 mg p.o. daily. 3. Aspirin 81 mg p.o. daily (to be taken for 90 days, then discontinue). 4. Isradipine 5 mg p.o. daily. 5. Crestor 20 mg p.o. q.h.s. 6. Plavix 75 mg p.o. daily. HOSPITAL COURSE: Mr. Wise is a 66-year-old male who has a history of hypertension, hyperlipidemia, and coronary artery disease, who presented to the emergency room with complaints of dizziness. The patient was at work when he suddenly became very dizzy, needing to hold on to the wall so that he did not fall down. The patient was seen in consultation by Dr. Herring in the emergency room, who felt that his symptoms were too short lived to be vestibular neuritis, but too long to be benign positional vertigo. It was felt that TIA is a likely diagnosis and therefore, the patient will be worked up and treated as such. The patient underwent CTA of the head and neck, which did not reveal any evidence of carotid stenosis nor any aneurysm, vascular malformation , occlusion or stenosis of the visualized intracranial circulation. The thyroid was, however, noted to be heterogeneous and it was recommended to have a dedicated imaging of the thyroid in a non-acute setting. The patient underwent MRI of the brain, which was read as an unremarkable MRI of the brain. There is no restricted diffusion to suggest acute infarct. The patient underwent transthoracic echocardiogram as well, which revealed mild LVH with an EF of 55% to 60%. Abnormal left ventricular diastolic function is observed as well as minor valvular regurgitation including MR, TR, and pulmonic insufficiency. Overall the patient's symptoms improved very quickly and in fact he has been asymptomatic while admitted to the hospital. At this point, it was felt that the patient is stable for discharge home. He will continue on both aspirin and Plavix for 90 days followed by Plavix alone moving forward. The patient has been recommended to follow up with Dr. Herring in approximately 1 month's time. FOLLOWUP CONCERNS: The patient is being discharged home today, 03/06/17. ACTIVITY LEVEL: As tolerated. DIET: Low fat. CONDITION ON DISCHARGE: Stable. FOLLOWUP: The patient should follow up with Dr. Monaco in the next 4 to 7 days and again with Dr. Herring in approximately 1 month. TIME SPENT: Twenty five minutes were spent discharging this patient. CC: Dr. Monaco; Dr. Aponte; Dr. Herring * [id number]/[facility] #: [id number] [facility]
== END 2017-03-06 13:00 | disposition home or self-care (01) ==
LOC: ED 11:14 → INTOOBSV 13:28 → OBSVTOIN 13:28 → MEDTELE 13:28
PROVIDERS: ADMIT Internal Medicine; ATTEND Hospitalist
DX: R42 Dizziness and giddiness (principal); I25.10 Atherosclerotic heart disease of native coronary artery without angina pectoris; I10 Essential (primary) hypertension; E78.5 Hyperlipidemia, unspecified; I51.7 Cardiomegaly; Z88.8 Allergy status to other drugs, medicaments and biological substances; F17.200 Nicotine dependence, unspecified, uncomplicated; Z79.899 Other long term (current) drug therapy
CPT/HCPCS: 36415; 70450; 70496; 70498; 70551; 80048; 80053; 80061; 81003; 83036; 83605; 84443; 84484; 85025; 85610; 93005; 93306; 96360; 96372; 99284; A9270-GY; G0378; J1644; Q9967